=== PATIENT | male | born 1960 | race Caucasian/White ===

== ENCOUNTER 2016-09-03 00:12 | Inpatient (IN) | payer SELFPAY ==
[~2016-09-03] VITALS: Ht 190.5 cm; Wt 86.7 kg
[2016-09-03] VITALS (7 sets, daily range): BP systolic 104–115; BP diastolic 59–86
[2016-09-03] MEDS ORDERED: ONDANSETRON PF 4 MG/2 ML VIAL. IV PRN (00:30)
[2016-09-03] MEDS ORDERED: ACETAMINOPHEN 325 MG TABLET. PO PRN (00:30)
[2016-09-03] MEDS ORDERED: MORPHINE SULFATE 2 MG/ML DISP.SYRIN. IV PRN (00:30)
--- NOTE | 2016-09-03 00:49 | EKG ---
[facility] [address] [place] [address] Test Date: 2016-09-03 Test Time: 00:38:54 Pat Name: JULIAN MARLOW Department: Room: 206 1 Gender: M Phlebotomy Specialist: EDGAR : 1960 Requested By: PRAKASH CHAVEZ Order Number: [id number] Reading MD: Measurements Intervals [place] Rate: 66 P: CA: QRS: 19 QRSD: 102 T: 31 QT: 400 QTc: 421 Interpretive Statements IRREGULAR RHYTHM, NO P-WAVE FOUND QRS(T) CONTOUR ABNORMALITY CONSIDER ANTEROLATERAL MYOCARDIAL DAMAGE POSSIBLY ABNORMAL ECG RI6.01 No previous ECG available for comparison
[2016-09-03 04:43] LABS: HEMATOCRIT 37.7 % (39.0-53.0); HEMOGLOBIN 12.2 g/dL (13.0-17.5); RED BLOOD COUNT 4.14 x10^6/uL (4.30-5.70); RED CELL DISTRIBUTION WIDTH 12.8 % (11.5-14.5); WHITE BLOOD COUNT 5.9 x10^3/uL (4.0-11.0)
[2016-09-03 05:22] LABS: ALBUMIN 3.1 g/dL (3.4-5.0); CALCIUM 8.8 mg/dL (8.5-10.1); CREATININE 0.7 mg/dL (0.7-1.3); GFR 115.8; POTASSIUM 3.5 mmol/L (3.5-5.1); TOTAL BILIRUBIN 0.3 mg/dL (0.2-1.0); TOTAL PROTEIN 6.1 g/dL (6.4-8.2)
[2016-09-03] MEDS ORDERED: HYDR12.58 PO (07:54)
[2016-09-03] MEDS ORDERED: LISI10TA2 PO (07:54)
[2016-09-03] MEDS ORDERED: ATOR20TA PO (07:54)
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
[2016-09-03] MEDS ORDERED: POTASSIUM CHLORIDE 20 MEQ TABLET.ER. PO ONE (12:00)
--- NOTE | 2016-09-03 12:08 | PDOC2 ---
CARDIAC CONSULT DATE OF CONSULT Date of Consult DATE: 09/03/16 TIME: 11:57 REASON FOR CONSULT Reason for Consult: Chest Pain HISTORY OF PRESENT ILLNESS HISTORY OF PRESENT ILLNESS Patient reports several days of unrelenting chest pain. Not related to activity or any specific trigger. Relates it is a dull ache, now about 1/10. Troponin has been negative. PAST MEDICAL HISTORY Past Medical History Tobacco abuse Cardiovascular: HTN Psych: Depression (and PTSD), Other (PTSD) SOCIAL HISTORY Smoke: <1 pack per day ALLERGIES ALLERGIES: Coded Allergies: Penicillins (Verified Allergy, Unknown, 09/03/16) coconut (Verified Allergy, Unknown, 09/03/16) strawberry (Verified Allergy, Unknown, 09/03/16) PHYSICAL EXAM General: Alert, Oriented X3, Cooperative HEENT: Other (Poor dentition) Lungs: Clear to auscultation Heart: No murmurs Abdomen: Normal bowel sounds Extremities: No edema, Normal pulses VITALS VITALS Vital Signs Date Time Temp Pulse Resp B/P Pulse Ox O2 Delivery O2 Flow Rate FiO2 09/03/16 07:55 98.5 62 17 114/75 96 Room Air 98.5 LABS Lab: Laboratory Tests Test 09/03/16 02:00 09/03/16 07:55 White Blood Count 5.9x10^3/uL (4.0-11.0) Red Blood Count 4.14x10^6/uL (4.30-5.70) Hemoglobin 12.2g/dL (13.0-17.5) Hematocrit 37.7% (39.0-53.0) Mean Corpuscular Volume 91fL (79-100) Mean Corpuscular Hemoglobin 30pg (25-35) Mean Corpuscular Hemoglobin Concent 32g/dL (31-37) Red Cell Distribution Width 12.8% (11.5-14.5) Platelet Count 263x10^3/uL (140-400) Sodium Level 143mmol/L (136-145) Potassium Level 3.5mmol/L (3.5-5.1) Chloride Level 108mmol/L (98-107) Carbon Dioxide Level 26mmol/L (21-32) Anion Gap 9 (6-14) Blood Urea Nitrogen 17mg/dL (8-26) Creatinine 0.7mg/dL (0.7-1.3) Estimated GFR (Cockcroft-Gault) 115.8 BUN/Creatinine Ratio 24 (6-20) Glucose Level 109mg/dL (70-99) Calcium Level 8.8mg/dL (8.5-10.1) Total Bilirubin 0.3mg/dL (0.2-1.0) Aspartate Amino Transf (AST/SGOT) 20U/L (15-37) Alanine Aminotransferase (ALT/SGPT) 21U/L (16-63) Alkaline Phosphatase 39U/L (46-116) Troponin I Quantitative < 0.017ng/mL (0.000-0.055) < 0.017ng/mL (0.000-0.055) Total Protein 6.1g/dL (6.4-8.2) Albumin 3.1g/dL (3.4-5.0) Albumin/Globulin Ratio 1.0 (1.0-1.7) Triglycerides Level 42mg/dL (0-150) Cholesterol Level 118mg/dL (0-200) LDL Cholesterol, Calculated 70mg/dL (0-100) VLDL Cholesterol, Calculated 8mg/dL (0-40) HDL Cholesterol 40mg/dL (40-60) Cholesterol/HDL Ratio 3.0 EKG EKG NSR, no injury pattern or old [place] ASSESSMENT/PLAN ASSESSMENT/PLAN Non-cardiac chest pain Given risk factors, outpatient stress testing for risk stratification is reasonable. Encourage smoking cessation. Reconsult for further questions Total time, more than half counseling and coordinating care, is 25 minutes. Problems: ROMI BARRAGAN DO Sep 03, 2016 12:08
[2016-09-03] MEDS: HYDROCHLOROTHIAZIDE 12.5 MG CAPSULE. PO SCH (12:39)
[2016-09-03] MEDS: LISINOPRIL 10 MG TABLET PO SCH (12:39)
[2016-09-03] MEDS ORDERED: ATORVASTATIN CALCIUM 20 MG TABLET PO SCH (21:00)
[2016-09-04 03:00] VITALS: BP 107/77
[2016-09-04 05:25] LABS: BASO % 1 % (0-3); EOS % 2 % (0-3); HEMOGLOBIN 13.3 g/dL (13.0-17.5); LYMPH # 1.3 x10^3/uL (1.0-4.8); LYMPH % 19 % (24-48); MEAN CORPUSCULAR HEMOGLOBIN 30 pg (25-35); MEAN CORPUSCULAR HGB CONC 33 g/dL (31-37); MEAN CORPUSCULAR VOLUME 89 fL (79-100); MONO % 8 % (0-9); NEUT % 71 % (31-73); PLATELET COUNT 286 x10^3/uL (140-400); RED BLOOD COUNT 4.48 x10^6/uL (4.30-5.70); RED CELL DISTRIBUTION WIDTH 12.6 % (11.5-14.5); WHITE BLOOD COUNT 6.8 x10^3/uL (4.0-11.0)
[2016-09-04 05:51] LABS: ALBUMIN 3.1 g/dL (3.4-5.0); CALCIUM 8.7 mg/dL (8.5-10.1); CREATININE 0.8 mg/dL (0.7-1.3); GFR 99.3; POTASSIUM 4.2 mmol/L (3.5-5.1); TOTAL BILIRUBIN 0.3 mg/dL (0.2-1.0); TOTAL PROTEIN 6.3 g/dL (6.4-8.2)
[2016-09-04 06:59] VITALS: BP 119/74
[2016-09-04] MEDS ORDERED: POTASSIUM CHLORIDE 20 MEQ TABLET.ER. PO SCH (08:00)
[2016-09-04] MEDS: LISINOPRIL 10 MG TABLET PO SCH (08:42)
[2016-09-04] MEDS: HYDROCHLOROTHIAZIDE 12.5 MG CAPSULE. PO SCH (08:42)
[2016-09-04 10:44] VITALS: BP 115/68
--- NOTE | 2016-09-04 13:18 | PDOC ---
PROGRESS NOTES Chief Complaint Chief Complaint SI ASSESSMENT AND PLAN: 1. SI: not suicidal x24h; not a cadidate for in-pt admit for psych. d/w PAT team. prob D/C back to care home house today. 2. Depression, PTSD: stable 3. CP: atypical. appreciate cardiac input. no further W/U acutely indicated Vitals Vitals Vital Signs Date Time Temp Pulse Resp B/P Pulse Ox O2 Delivery O2 Flow Rate FiO2 09/04/16 10:44 98.4 67 18 115/68 93 Room Air 98.4 Physical Exam General: Alert, Oriented X3, Cooperative, No acute distress Heart: Regular rate, No murmurs Lungs: Clear Abdomen: Normal bowel sounds Extremities: No edema Skin: No rashes, No breakdown, No significant lesion Labs LABS Laboratory Tests Test 09/04/16 04:20 White Blood Count 6.8x10^3/uL (4.0-11.0) Red Blood Count 4.48x10^6/uL (4.30-5.70) Hemoglobin 13.3g/dL (13.0-17.5) Hematocrit 40.0% (39.0-53.0) Mean Corpuscular Volume 89fL (79-100) Mean Corpuscular Hemoglobin 30pg (25-35) Mean Corpuscular Hemoglobin Concent 33g/dL (31-37) Red Cell Distribution Width 12.6% (11.5-14.5) Platelet Count 286x10^3/uL (140-400) Neutrophils (%) (Auto) 71% (31-73) Lymphocytes (%) (Auto) 19% (24-48) Monocytes (%) (Auto) 8% (0-9) Eosinophils (%) (Auto) 2% (0-3) Basophils (%) (Auto) 1% (0-3) Neutrophils # (Auto) 4.8x10^3uL (1.8-7.7) Lymphocytes # (Auto) 1.3x10^3/uL (1.0-4.8) Monocytes # (Auto) 0.6x10^3/uL (0.0-1.1) Eosinophils # (Auto) 0.1x10^3/uL (0.0-0.7) Basophils # (Auto) 0.0x10^3/uL (0.0-0.2) Sodium Level 140mmol/L (136-145) Potassium Level 4.2mmol/L (3.5-5.1) Chloride Level 107mmol/L (98-107) Carbon Dioxide Level 26mmol/L (21-32) Anion Gap 7 (6-14) Blood Urea Nitrogen 15mg/dL (8-26) Creatinine 0.8mg/dL (0.7-1.3) Estimated GFR (Cockcroft-Gault) 99.3 BUN/Creatinine Ratio 19 (6-20) Glucose Level 106mg/dL (70-99) Calcium Level 8.7mg/dL (8.5-10.1) Total Bilirubin 0.3mg/dL (0.2-1.0) Aspartate Amino Transf (AST/SGOT) 18U/L (15-37) Alanine Aminotransferase (ALT/SGPT) 21U/L (16-63) Alkaline Phosphatase 43U/L (46-116) Total Protein 6.3g/dL (6.4-8.2) Albumin 3.1g/dL (3.4-5.0) Albumin/Globulin Ratio 1.0 (1.0-1.7) Review of Systems Review of Systems no CP today. [facility] BEATRIZ BRANCH MD Sep 04, 2016 13:18
--- NOTE | 2016-09-04 14:29 | DISCH ---
DISCHARGE INSTRUCTIONS Condition on Discharge Condition on Discharge: Stable Activity After Discharge Activity Instructions for Disc: No restrictions Diet after Discharge Diet after Discharge: Regular Contacting the DR. after DC Call your doctor for: Concerns you may have Follow-Up Follow up with: psych BEATRIZ SULLIVAN MD Sep 04, 2016 14:28
[2016-09-04 15:06] VITALS: BP 133/86
--- NOTE | 2016-09-07 00:28 | DS ---
DATE OF DISCHARGE: 09/04/2016 CHIEF COMPLAINT: Suicidal ideation. HOSPITAL COURSE: The patient is a 56-year-old gentleman with history of depression, PTSD, who presented to the Emergency Room with suicidal ideation. He was therefore admitted for further evaluation by the PAT team. The next morning after his admission, he denied any true suicidal ideation, explaining [facility] He was therefore determined to be stable for discharge from a psychiatric standpoint with outpatient followup. He had also complained of chest pain, which was atypical in presentation. Cardiac consult was obtained and this was determined to be noncardiac, probably GERD related. DISCHARGE DATE: 09/04/2016. DISCHARGE PHYSICAL EXAMINATION: Please refer to note from the same day. DISCHARGE DIAGNOSES: Suicidal ideation, resolved and chest pain. DISCHARGE DISPOSITION: Return to [facility]. DISCHARGE CONDITION: Improved. DISCHARGE MEDICATIONS: Please refer to MAR. DISCHARGE INSTRUCTIONS: The patient will follow up with psychiatric care. Greater than 30 minutes were spent in arranging discharge. BEATRIZ BRANCH MD DR: VAMSI/nts JOB#: [id number] / [id number] ESTUARDO
== END 2016-09-04 16:05 | DRG 313 ==
LOC: 2 NORTH 00:12
PROVIDERS: ADMIT Internal Medicine; ATTEND Internal Medicine
DX: R07.89 Other chest pain (principal); R45.851 Suicidal ideations; F17.200 Nicotine dependence, unspecified, uncomplicated; F32.9 Major depressive disorder, single episode, unspecified; F43.10 Post-traumatic stress disorder, unspecified; G47.00 Insomnia, unspecified; I10 Essential (primary) hypertension; M54.5 Low back pain; I20.9 Angina pectoris, unspecified; Z82.49 Family history of ischemic heart disease and other diseases of the circulatory system; Z88.0 Allergy status to penicillin; Z91.018 Allergy to other foods
CPT/HCPCS: 36415; 80053; 80061; 84484; 85027; 93005